=== PATIENT | male | born 1990 | race Two or more races ===

== ENCOUNTER 2018-05-24 08:04 | Inpatient (IN) ==
[2018-05-24] MEDS ORDERED: ceFAZolin 2 GM Premix Inj 2 GM/50 ML PIGGYBACK IV.SIG ONE (08:10)
[2018-05-24] MEDS ORDERED: Diphtheria/Tetanus/Pertussis Vaccine Inj 0.5 ML Syringe IM ONE (08:10)
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
[2018-05-24 08:50] LABS: Activated Partial Thrombo Time 19.3 sec (24.3-30.1); INR 1.2 Ratio; Prothrombin Time 12.2 sec (9.8-11.6)
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
[2018-05-24] MEDS ORDERED: Morphine Inj 4 MG/ML Vial IV.PUSH PRN (09:03)
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
[2018-05-24 09:14] LABS: Baso % (Auto) 0.1 % (0.0-2.0); Eos # (Auto) 0.3 th/mm3 (0.0-0.4); Eos % (Auto) 1.9 % (0.0-4.0); Hemoglobin 14.7 gm/dL (13.0-17.0); Lymph % (Auto) 6.1 % (9.0-44.0); Mean Corpuscular HGB Conc 34.1 % (32.0-36.0); Mean Corpuscular Hemoglobin 31.9 pg (27.0-34.0); Mean Corpuscular Volume 93.6 fL (80.0-100.0); Mean Platelet Volume 9.6 fL (7.0-11.0); Mono # (Auto) 1.2 th/mm3 (0.0-0.9); Mono % (Auto) 7.1 % (0.0-8.0); Neut # (Auto) 13.9 th/mm3 (1.8-7.7); Neut % (Auto) 84.8 % (16.0-70.0); Platelet Count 177 th/mm3 (150-450); Red Blood Count 4.59 mil/mm3 (4.50-5.90); Red Cell Distribution Width 13.2 % (11.6-17.2); White Blood Count 16.4 th/mm3 (4.0-11.0)
[2018-05-24] MEDS: Docusate Sodium 100 MG Capsule PO SCH ×2 (09:37→21:52)
[2018-05-24] MEDS: Sod Chloride 0.9% Inj 1,000 ML IV.CONT SCH ×2 (09:38→21:49)
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
[2018-05-24] MEDS: Morphine Inj 4 MG/ML Vial IV.PUSH PRN (16:00)
[2018-05-24] MEDS ORDERED: Morphine Sulfate Inj 8 MG/ML Vial IV.PUSH ONE (17:49)
[2018-05-24] MEDS: Pantoprazole Inj 40 MG Vial IV.PUSH SCH (18:49)
[2018-05-25] MEDS ORDERED: Chlorhexidine Gluconate 2% 1 Pack (2 Cloths) TOPICAL SCH (04:00)
[2018-05-25] MEDS ORDERED: Chlorhexidine Gluconate 2% 1 Pack (2 Cloths) TOPICAL PRN (04:00)
[2018-05-25] MEDS ORDERED: Chlorhexidine Gluconate 2% 1 Pack (2 Cloths) TOPICAL ONE (05:21)
[2018-05-25 05:24] LABS: Baso % (Auto) 0.4 % (0.0-2.0); Eos # (Auto) 0.8 th/mm3 (0.0-0.4); Eos % (Auto) 9.1 % (0.0-4.0); Hematocrit 41.5 % (39.0-51.0); Hemoglobin 14.3 gm/dL (13.0-17.0); Lymph # (Auto) 1.7 th/mm3 (1.0-4.8); Lymph % (Auto) 18.1 % (9.0-44.0); Mean Corpuscular HGB Conc 34.5 % (32.0-36.0); Mean Corpuscular Hemoglobin 32.3 pg (27.0-34.0); Mean Corpuscular Volume 93.5 fL (80.0-100.0); Mean Platelet Volume 9.7 fL (7.0-11.0); Mono # (Auto) 1.2 th/mm3 (0.0-0.9); Mono % (Auto) 12.7 % (0.0-8.0); Neut # (Auto) 5.6 th/mm3 (1.8-7.7); Neut % (Auto) 59.7 % (16.0-70.0); Platelet Count 146 th/mm3 (150-450); Red Blood Count 4.44 mil/mm3 (4.50-5.90); Red Cell Distribution Width 13.2 % (11.6-17.2); White Blood Count 9.3 th/mm3 (4.0-11.0)
[2018-05-25 05:39] LABS: Calcium 7.7 mg/dL (8.5-10.1); Carbon Dioxide 28.6 meq/L (21.0-32.0)
[2018-05-25] MEDS ORDERED: Sodium Chlor 0.9% Inj 500 ML IV.SIG SCH (06:00)
[2018-05-25] MEDS: Sod Chloride 0.9% Inj 1,000 ML IV.CONT SCH ×2 (06:14→15:15)
[2018-05-25] MEDS: Docusate Sodium 100 MG Capsule PO SCH (08:07)
[2018-05-25] MEDS: Pantoprazole Inj 40 MG Vial IV.PUSH SCH (08:07)
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
[2018-05-25] MEDS: Morphine Inj 4 MG/ML Vial IV.PUSH PRN (10:15)
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
[2018-05-25] MEDS: Senna/Docusate Sodium 8.6/50 MG Tablet PO SCH (21:47)
[2018-05-26] MEDS: Sod Chloride 0.9% Inj 1,000 ML IV.CONT SCH ×2 (03:34→12:58)
[2018-05-26] MEDS: Senna/Docusate Sodium 8.6/50 MG Tablet PO SCH (09:20)
[2018-05-26] MEDS: Pantoprazole Inj 40 MG Vial IV.PUSH SCH (09:21)
[2018-05-26 12:36] VITALS: BP 117/56; PULSE 90; TEMP 98.4; O2SAT 96
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
[2018-05-26 17:05] VITALS: RESP 18
== END 2018-05-26 17:50 | disposition home or self-care (01) ==
LOC: NEPI 08:04 → NEDA 09:26 → EDBD 09:26 → N06 10:15 → UNDODISIN 05-26 15:38
PROVIDERS: ADMIT Surgery; ATTEND Surgery